=== PATIENT | female | born 1945 | race Caucasian/White ===

== ENCOUNTER 2021-08-01 18:29 | Inpatient (IN) | payer MEDICARE ==
[~2021-08-01] VITALS: Ht 157.5 cm; Wt 125.6 kg
[~2021-08-01 18:29] MED LIST: BACTRIM DS TAB1 EACH PO
[2021-08-02 01:50] LABS: RED BLOOD COUNT 2.77 M/UL (4.00-5.10); WHITE BLOOD COUNT 8.1 K/UL (4.5-11.0)
[2021-08-02] MEDS ORDERED: AMARYL2 MG PO (02:16)
[2021-08-02] MEDS ORDERED: PLETAL 100 MG100 MG PO (02:17)
[2021-08-02] MEDS ORDERED: PLAVIX 75 MG TA75 MG PO (02:17)
[2021-08-02] MEDS ORDERED: GABAPENTIN100 MG PO (02:18)
[2021-08-02] MEDS ORDERED: ISOSORBIDE MONO30 MG PO (02:19)
[2021-08-02] MEDS ORDERED: PREVACID30 MG PO (02:23)
[2021-08-02] MEDS ORDERED: ZESTRIL20 MG PO (02:24)
[2021-08-02] MEDS ORDERED: LASIX40 MG PO (02:24)
[2021-08-02] MEDS ORDERED: NITROSTAT 0.40.4 MG SL (02:24)
[2021-08-02] MEDS ORDERED: CRESTOR5 MG PO (02:25)
[2021-08-02] MEDS ORDERED: VITAMIN D21250 MCG PO (02:27)
[2021-08-02] MEDS ORDERED: ZOFRAN 4 MG TAB4 MG PO (02:28)
[2021-08-02] MEDS ORDERED: TRAMADOL-ACETA1 EACH PO (02:29)
[2021-08-02 08:03] LABS: HEMOGLOBIN 7.6 gm/dl (12.3-15.3); RED BLOOD COUNT 2.69 M/UL (4.00-5.10); WHITE BLOOD COUNT 7.5 K/UL (4.5-11.0)
[2021-08-02] MEDS ORDERED: LEVEMIR IN100 UNITS/ SQ (12:14)
[2021-08-02] MEDS ORDERED: CYANOCOBAL1000 MCG/1 INJ (12:15)
[2021-08-02] MEDS ORDERED: HUMALOG100 UNIT/3 SQ (12:16)
[2021-08-03 01:16] LABS: HEMOGLOBIN 7.4 gm/dl (12.3-15.3); RED BLOOD COUNT 2.55 M/UL (4.00-5.10); WHITE BLOOD COUNT 7.2 K/UL (4.5-11.0)
[2021-08-03 09:17] LABS: HBSAG SCREEN Negative (Negative); HEP B CORE AB, TOT Negative (Negative); HEP C VIRUS AB <0.1 (0.0-0.9)
[2021-08-03 11:17] LABS: ANTISTREPTOLYSIN O AB 51.1 IU/mL (0.0-200.0); COMPLEMENT C3, SERUM 135 mg/dL (82-167); COMPLEMENT C4, SERUM 25 mg/dL (12-38)
[2021-08-03 13:12] LABS: ANTI-DSDNA ANTIBODIES 1 IU/mL (0-9)
[2021-08-04 04:47] LABS: HEMOGLOBIN 7.4 gm/dl (12.3-15.3); RED BLOOD COUNT 2.54 M/UL (4.00-5.10)
[2021-08-04 04:51] LABS: WHITE BLOOD COUNT 10.4 K/UL (4.5-11.0)
[2021-08-04 17:09] LABS: ATYPICAL PANCA <1:20 titer (Neg:<1:20); PERINUCLEAR (P-ANCA) <1:20 titer (Neg:<1:20)
[2021-08-05 04:34] LABS: HEMOGLOBIN 8.1 gm/dl (12.3-15.3)
[2021-08-05 04:35] LABS: RED BLOOD COUNT 2.86 M/UL (4.00-5.10); WHITE BLOOD COUNT 13.4 K/UL (4.5-11.0)
== END 2021-08-05 12:16 | disposition expired ==
LOC: PROG CARE 21:13 → CCU 08-03 21:27
PROVIDERS: Internal Medicine; Internal Medicine Nephrology; ADMIT Internal Medicine
PROC: 3E033XZ Introduction of Vasopressor into Peripheral Vein, Percutaneous Approach (ICD-10-PCS; principal; 2021-08-02)
PROC: B24BZZZ Ultrasonography of Heart with Aorta (ICD-10-PCS; 2021-08-02)
DX: I13.0 Hypertensive heart and chronic kidney disease with heart failure and stage 1 through stage 4 chronic kidney disease, or unspecified chronic kidney disease (principal); N17.0 Acute kidney failure with tubular necrosis; I21.A1 Myocardial infarction type 2; G93.41 Metabolic encephalopathy; J96.21 Acute and chronic respiratory failure with hypoxia; J96.22 Acute and chronic respiratory failure with hypercapnia; I50.23 Acute on chronic systolic (congestive) heart failure; J18.9 Pneumonia, unspecified organism; E66.2 Morbid (severe) obesity with alveolar hypoventilation; E87.1 Hypo-osmolality and hyponatremia; J44.1 Chronic obstructive pulmonary disease with (acute) exacerbation; E87.2 Acidosis; E44.0 Moderate protein-calorie malnutrition; Z68.43 Body mass index [BMI] 50.0-59.9, adult; R57.0 Cardiogenic shock; D50.0 Iron deficiency anemia secondary to blood loss (chronic); Z66 Do not resuscitate; I25.10 Atherosclerotic heart disease of native coronary artery without angina pectoris; E11.40 Type 2 diabetes mellitus with diabetic neuropathy, unspecified; N18.30 Chronic kidney disease, stage 3 unspecified; I25.5 Ischemic cardiomyopathy; E78.5 Hyperlipidemia, unspecified; D63.1 Anemia in chronic kidney disease; E87.5 Hyperkalemia; E11.22 Type 2 diabetes mellitus with diabetic chronic kidney disease; E55.9 Vitamin D deficiency, unspecified; E88.09 Other disorders of plasma-protein metabolism, not elsewhere classified; E11.51 Type 2 diabetes mellitus with diabetic peripheral angiopathy without gangrene; E11.21 Type 2 diabetes mellitus with diabetic nephropathy; I73.9 Peripheral vascular disease, unspecified; Z96.1 Presence of intraocular lens; D50.9 Iron deficiency anemia, unspecified; M54.9 Dorsalgia, unspecified; G89.29 Other chronic pain; I65.23 Occlusion and stenosis of bilateral carotid arteries; Z98.49 Cataract extraction status, unspecified eye; I46.9 Cardiac arrest, cause unspecified; Z82.49 Family history of ischemic heart disease and other diseases of the circulatory system; Z83.3 Family history of diabetes mellitus; Z79.899 Other long term (current) drug therapy; Z95.5 Presence of coronary angioplasty implant and graft; Z95.828 Presence of other vascular implants and grafts; Z88.5 Allergy status to narcotic agent; Z88.0 Allergy status to penicillin; Z87.891 Personal history of nicotine dependence; Z99.81 Dependence on supplemental oxygen; Z98.41 Cataract extraction status, right eye; Z98.42 Cataract extraction status, left eye; Z85.3 Personal history of malignant neoplasm of breast; Z90.10 Acquired absence of unspecified breast and nipple; Z51.5 Encounter for palliative care
CPT/HCPCS: ECHO; 36415; 36600; 71045; 80048; 80053; 80061; 81001; 82436; 82533; 82550; 82553; 82570; 82607; 82652; 82746; 82803; 82962; 83036; 83520; 83540; 83550; 83605; 83735; 83880; 83930; 83935; 83970; 84100; 84133; 84156; 84300; 84439; 84443; 84484; 84550; 85007; 85025; 85027; 85045; 85610; 85652; 85730; 86038; 86060; 86140; 86160; 86162; 86225; 86256; 86704; 86706; 86708; 86803; 87040; 87081; 87086; 87340; 89050; 93005; 93306; 94640; 94664; 94760; 97162; 97166; C9113; J1250; J1644; J1756; J1956; J2370; J2405; J7030; P9047